=== PATIENT | female | born 1965 | race Asian ===

== ENCOUNTER 2018-03-09 09:42 | Outpatient (CLI) | payer BC ==
[~2018-03-09 09:42] MED LIST: HYDR25TA60 PO; METF500T PO; RANI150T78 PO; ZOFRAN PO
== END 2018-03-09 19:26 | disposition home or self-care (01) ==
LOC: MAMMO 09:42
DX: Z12.31 Encounter for screening mammogram for malignant neoplasm of breast (principal)

== ENCOUNTER 2018-12-05 16:24 | Outpatient (CLI) | payer OTHER | END 2018-12-05 19:16 | disposition home or self-care (01) | LOC: LABW 16:24 | DX: M10.071 Idiopathic gout, right ankle and foot (principal) | CPT/HCPCS: 36415; 84550; 85651 ==

== ENCOUNTER 2019-02-02 09:19 | Outpatient (CLI) | payer BC | END 2019-02-02 20:12 | disposition home or self-care (01) | LOC: US 09:19 | DX: E07.9 Disorder of thyroid, unspecified (principal) ==

== ENCOUNTER 2019-04-10 09:19 | Outpatient (CLI) | payer BC | END 2019-04-10 21:34 | disposition home or self-care (01) | LOC: MAMMO 09:19 | DX: Z12.31 Encounter for screening mammogram for malignant neoplasm of breast (principal) ==

== ENCOUNTER 2019-09-06 08:44 | Outpatient (CLI) | payer BC ==
[2019-09-06 09:50] LABS: PLATELET COUNT 202 K/uL (152-353)
[2019-09-06 09:55] LABS: POTASSIUM 3.9 mmol/L (3.6-5.2)
== END 2019-09-06 20:22 | disposition home or self-care (01) ==
LOC: LABW 08:44
PROVIDERS: Internal Medicine
DX: E11.9 Type 2 diabetes mellitus without complications (principal)
CPT/HCPCS: 36415; 80053; 80061; 81000; 82043; 82570; 83036; 84439; 84443; 85027

== ENCOUNTER 2019-10-18 14:54 | Outpatient (CLI) | payer BC | END 2019-10-18 22:03 | disposition home or self-care (01) | LOC: LAB 14:54 | DX: L02.93 Carbuncle, unspecified (principal) | CPT/HCPCS: 87070; 87205 ==

== ENCOUNTER 2020-07-30 10:29 | Outpatient (CLI) | payer OTHER | END 2020-07-30 22:42 | disposition home or self-care (01) | LOC: RESP 10:29 | PROVIDERS: ATTEND Nurse Practitioner Family | DX: R20.2 Paresthesia of skin (principal); G56.92 Unspecified mononeuropathy of left upper limb; G56.02 Carpal tunnel syndrome, left upper limb; G56.22 Lesion of ulnar nerve, left upper limb | CPT/HCPCS: 95885; 95910 ==

== ENCOUNTER 2020-08-06 16:21 | Outpatient (CLI) | payer OTHER | END 2020-08-06 19:29 | disposition home or self-care (01) | LOC: RAD 16:21 | PROVIDERS: ATTEND Nurse Practitioner Family | DX: R23.8 Other skin changes (principal); S61.239A Puncture wound without foreign body of unspecified finger without damage to nail, initial encounter ==

== ENCOUNTER 2021-05-19 09:42 | Outpatient (CLI) | payer BC | END 2021-05-19 18:53 | disposition home or self-care (01) | LOC: MAMMO 09:42 | PROVIDERS: ATTEND Nurse Practitioner Family | DX: Z12.31 Encounter for screening mammogram for malignant neoplasm of breast (principal) ==

== ENCOUNTER 2021-10-15 15:01 | Outpatient (CLI) | payer BC | END 2021-10-15 19:39 | disposition home or self-care (01) | LOC: CT 15:01 | PROVIDERS: ATTEND Nurse Practitioner Family | DX: R10.11 Right upper quadrant pain (principal); R11.2 Nausea with vomiting, unspecified; R19.7 Diarrhea, unspecified | CPT/HCPCS: 36415; 82565; 84520; Q9963 ==

== ENCOUNTER 2021-10-18 06:56 | Outpatient (CLI) | payer BC | END 2021-10-18 18:54 | disposition home or self-care (01) | LOC: LABW 06:56 | PROVIDERS: ATTEND Nurse Practitioner Family | DX: R10.9 Unspecified abdominal pain (principal); R19.7 Diarrhea, unspecified; K52.89 Other specified noninfective gastroenteritis and colitis | CPT/HCPCS: 87015; 87045; 87899 ==